=== PATIENT | female | born 1970 | race African-American/Black ===

== ENCOUNTER 2023-05-23 09:13 | Observation (INO) | payer OTHER, SELFPAY ==
--- OUTSIDE RECORDS SUMMARY | 2023-05-23 09:15 | XMS REPORT | Continuity of Care Document ---
:1970 Author Organization [facility] Address [address] [place] [address] Care Team Providers Name Role Phone Asked, No Pcp Primary Care Physician Unavailable KELSEY ARCE Attending Clinician Unavailable JESUS ESPINO Attending Clinician Unavailable NICKOLAS DE LA TORRE Attending Clinician Unavailable TOMMIE SAUCEDA Attending Clinician Unavailable DO GENARO QUEEN Attending Clinician Unavailable DEREK HIGH Admitting Clinician Unavailable GENARO QUEEN Admitting Clinician Unavailable DO GENARO QUEEN Admitting Clinician Unavailable Problems Condition Condition Condition Status Onset Resolution Last Treating Co mments Source Name Details Category Date Date Treatment Clinician Date Exacerbati Exacerbati Disease Active M ethodi on of on of 06-13 systemic systemic 00:00: Hospit a lupus lupus 00 l Allergies, Adverse Reactions, Alerts Allergy Allergy Status Severity Reaction(s) Onset Inactive Treating Comm ents Source Name Type Date Date Clinician Nikhil Warren Active Hives Method i ycin ty to 06-13 adverse 00:00: Hospita reaction 00 l s to drug Social History Social Habit Start Date Stop Date Quantity Comments Source [facility] History of Social 2020-06-15 2020-06-[address] function 00:00:00 00:00:00 Hospital Tobacco use and 2020-06-13 2020-06-13 Smokeless [facility] 00:00:00 00:00:00 tobacco non-user Hospital Alcohol intake 2020-06-13 2020-06-13 Ex-drinker [facility] 00:00:00 00:00:00 (finding) Hospital Sex Assigned At [birth year] [facility] Smoking Status Start Date Stop Date Source Never smoked tobacco [facility] Medications This patient has no known medications. Procedures This patient has no known procedures. Plan of Care Planned Activity Planned Date Details Comments Source Future Scheduled 2023-05-16 Screening for [facility] Test 11:12:14 malignant neoplasm of colon (procedure) [code = 315448440] Future Scheduled 2023-05-16 Screening for [facility] Test 11:12:14 malignant neoplasm of colon (procedure) [code = 081130665] Future Scheduled 2023-05-16 Screening for [facility] Test 11:12:14 malignant neoplasm of colon (procedure) [code = 108885897] Future Scheduled 2023-05-16 COVID-19 VACCINE [facility] Test 11:12:14 (#1) [code = COVID-19 VACCINE (#1)] Future Scheduled 2023-05-16 Hepatitis C [facility] Test 11:12:14 screening (procedure) [code = 913593993] Future Scheduled 2023-05-16 Screening for [facility] Test 11:12:14 malignant neoplasm of cervix (procedure) [code = 749172640] Future Scheduled 2023-05-16 BREAST CANCER [facility] Test 11:12:14 SCREENING [code = BREAST CANCER SCREENING] Future Scheduled 2023-05-16 Screening for [facility] Test 11:12:14 malignant neoplasm of colon (procedure) [code = 558078654] Future Scheduled 2023-05-16 Screening for [facility] Test 11:12:14 malignant neoplasm of colon (procedure) [code = 655662804] Future Scheduled 2023-05-16 SHINGLES VACCINES [facility] 11:12:14 (1 of 2) [code = SHINGLES VACCINES (1 of 2)] Future Scheduled 2023-05-16 INFLUENZA VACCINE [facility] Test 11:12:14 [code = INFLUENZA VACCINE] Encounters Start End Encounter Admission Attending Care Care Encounter Source Date/Time Date/Time Type Type Clinicians Facility Department ID 2023-02-26 Outpatient [facility] [id number] [place] 10:14:30 [id number] [facility] 2023-02-23 Outpatient [facility] [id number] [place] 11:35:09 [id number] [facility] 2023-05-20 2023-05-20 Outpatient CORRIE ARCE, [facility] [id number] [place] 12:49:00 12:49:00 KELSEY -[id number] [facility] 2023-03-23 2023-03-24 Outpatient Mikki ESPINO, [facility] [id number] 22:46:00 20:55:00 [facility] 2023-02-26 2023-02-26 Outpatient WIL, [facility] [id number] [place] 10:10:00 10:10:00 [facility] 2020-06-13 2020-06-16 Inpatient [facility] [id number] [place] 00:00:00 00:00:00 [facility]IT[facility] [address] Results Test Description Test Time Test Comments Results Result Comments Source SARS-CoV-2 (COVID-19) RNA [Presence] in Respiratory sp ecimen by 2020-06-13 20:41:51 JAY JAY with probe detection Test Item Value Reference Range Interpretation Comme nts SARS-CoV-2 (COVID-19) RNA [Presence] in Respiratory Not detected No t-Detected specimen by JAY JAY with probe detection (test code = 44521-2) [facility]
[2023-05-23 09:51] LABS: Specific Gravity 1.022 (1.005-1.030); Transitional Epithelial <5 /HPF (None Seen); Urine Bacteria <20 /HPF (<20); Urine Bilirubin NEGATIVE (Negative); Urine Blood 1+ (Negative); Urine Clarity Extremely Turbid (Clear); Urine Color Yellow (Yellow); Urine Glucose NEGATIVE (Negative); Urine Mucus 4+ /HPF (None Seen); Urine Protein 1+ (Negative); Urine RBC <5 /HPF (None Seen); Urine Urobilinogen Normal (Normal); Urine pH 5.5 (5.0-7.0)
[2023-05-23 10:31] LABS: Absolute Lymphocytes (CBC) 1.9 K/uL (0.7-4.9); Hematocrit 36.5 % (36.0-45.0); Lymphocytes % 23.1 % (15.3-44.8); MCV 90.2 fL (80-100); RBC Red Blood Cell Count 4.05 M/uL (3.86-4.86)
[2023-05-23 10:34] LABS: Protime INR 1.26
[2023-05-23] MEDS ORDERED: HYDROCORTISONE SUC 100 MG INJ ONE ×2 (10:39→19:31)
[2023-05-23] MEDS ORDERED: FENTANYL CITR 100 MCG/2 ML ONE (10:40)
[2023-05-23 10:57] LABS: Albumin 3.5 g/dL (3.4-5.0); Bilirubin Total 0.5 mg/dL (0.2-1.0); Phosphorus 2.3 mg/dL (2.5-4.9); Potassium 2.8 mEq/L (3.5-5.1); Protein, Total 7.6 g/dL (6.4-8.2); Thyroid Stimulating Hormone 0.823 uIU/mL (0.358-3.740)
--- NOTE | 2023-05-23 11:05 | RAD REPORT ---
EXAM DESCRIPTION: CT - Head C Spine Cap Wo Con - 05/23/2023 10:49 am CLINICAL HISTORY: Trauma, head and neck injury. Chest, abdomen and pelvis pain. flank pain;Declining state COMPARISON: <Comparisons> TECHNIQUE: CT head without contrast. CT cervical spine without contrast with coronal and sagittal reformatted images. CT chest, abdomen and pelvis without contrast with coronal and sagittal reformatted images of the spi ne. All CT scans are performed using dose optimization technique as appropriate and may include automated exposure control or mA/KV adjustment according to patient size. FINDINGS: CT HEAD WITHOUT CONTRAST: No intracranial hemorrhage, hydrocephalus or extra-axial fluid collection. No areas of brain edema o r midline shift. The paranasal sinuses and mastoids are clear. The calvarium is intact. CT CERVICAL SPINE WITHOUT CONTRAST: No fracture or subluxation. The prevertebral soft tissues are normal in thickness. CT CHEST, ABDOMEN, PELVIS WITHOUT CONTRAST: NOTE: Lack of contrast is a significant limitation in the assessment of trauma related findings. Spec ifically, solid organ, vascular and bowel evaluation is significantly limited. The lungs are clear.No pneumothorax or pericardial/pleural fluid. No evidence of intra-abdominal visceral injury, free fluid or free air is seen within the above detai led limitations. Cholecystectomy clips. No concerning pelvic findings. No fractures. IMPRESSION: No acute abnormality is detected.
--- NOTE | 2023-05-23 11:08 | RAD REPORT ---
EXAM DESCRIPTION: RAD - Chest Single View - 05/23/2023 10:35 am CLINICAL HISTORY: tachycardia Chest pain. COMPARISON: CHEST SINGLE VIEW dated 10/28/2013; CHEST PA AND LAT 2 VIEW dated 10/21/2013; CHEST SING LE VIEW dated 10/03/2013 FINDINGS: Portable technique limits examination quality. The lungs are grossly clear. The heart is normal in size. No displaced fractures. IMPRESSION: No acute intrathoracic process suspected.
[2023-05-23] MEDS ORDERED: HYDROMORPHONE HCL 1 MG/ML INJ ONE (11:44)
[2023-05-23] MEDS ORDERED: POTASSIUM PHOS IN 0.9 % NACL 15 MMOL/250 ML BAG IV ONE (12:15)
[2023-05-23] MEDS ORDERED: NA CHLORIDE 0.9% 2,000 ML ONE (12:25)
[2023-05-23] MEDS ORDERED: KCL 20 MEQ/100 mL IVPB 200 ML IV ONE (12:25)
--- NOTE | 2023-05-23 12:50 | P.HP ---
Certification for Inpatient Patient admitted to: Observation With expected LOS: <2 Midnights Practitioner: I am a practitioner with admitting privileges, knowledge of patient current condition, hospital course, and medical plan of care. Services: Services provided to patient in accordance with Admission requirements found in Title 42 Section 412.3 of the Code of Federal Regulations Patient History Date of Service: 05/23/23 Reason for admission: Hypokalemia, proteinuria History of Present Illness: 53, yo F, PMH: Lupus (on q48hr prednisone), HTN, Gastroparesis, recurrent UTIs, ~1 a month (since ~january 2022), depression Presents to ED today after leaving AMA from nearby hospital due to not feeling better. She was hospitalized for ~5-6 days and receiving treatment for pneum onia, UTI, and APRIL. Initially presented to hospital due to chest pain, nausea, and not feeling well. On further discussion, patient states 2 weeks ago, she felt like she developed a UTI, presented to UC/ED in [place], and prescribed antibiotic and iburpofen for UTI / pain. A few days later she didn't feel better so presented to [facility] (05/16) and found to have APRIL (Cr: ~2.7) and UTI. She was given IVF, antibiotics and discharged home. She didn't feel any better so returned on 05/18 (cr: 1.24) and admitted for further treatment/evaluation. Urine culture grew staph haemolyticus that was reportedly iglesias-sensitive - and patient received rocephin and nitrofurantoin. She was reportedly improving, however patient states she was continuing with nausea and vomiting, with a dark tarry black stool daily and having pain across lower back "at waistline" in addition to other scattered/nonspecific areas of her body. In the ED here, she was noted to be nauseous, with lower back pain, rust-colored urine, and hypokalemia of 2.8. She reportedly had a potassium level of 2.8 yesterday, replaced with 80meq KCL, and was "normal" this morning, per [facility] staff. Clean catch UA done in the ED reports +mild proteinuria, 25 leuk est., no bacteria, 1+blood, <5 rbcs, 5-10 hyaline casts, +mucus. She states she has been on prednisone 10mg every other day for years. Did not tolerate methotrexate or plaquenil. 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 Has been off steroids for 1 week. Allergies azithromycin Adverse Reaction (Mild, Verified 10/03/13 12:01) Hives Home medications list reviewed: No (below is old / inaccurate) Home Medications: Escitalopram [Lexapro] 10 mg PO DAILY 10/03/13 Metoclopramide [Reglan*] 10 mg PO QID 10/03/13 Rivaroxaban [Xarelto*] 20 mg PO DAILY 10/03/13 Sucralfate [Carafate*] 1 gm PO QID 10/03/13 Potassium Chloride [K-Dur] 10 meq PO DAILY 10/22/13 Sotalol HCl [Sorine] 80 mg PO BID #0 tablet 10/24/13 Hydrocodone 10/APAP 325 [[place] 10/325*] 1 tab PO Q6H PRN #30 tab 10/30/13 predniSONE [Prednisone*] 10 mg PO BID #40 tab 10/30/13 - Past Medical/Surgical History Diabetic: No -: Lupus -: recurrent UTIs, ~1 a month (since ~january 2022) -: Hypertension -: Depression -: Gastroparesis -: sciatica -: Cholecystectomy -: uterine ablation 2009 -: tubal ligation -: cardiac catheterization (from EMR) -: r shoulder sx -: 3 vaginal deliveries -: appendectomy - Family History Father -: Cancer (colon) Mother -: Cancer (lung) - Social History Smoking Status: Never smoker Alcohol use: No CD- Drugs: Yes Caffeine use: No Place of Residence: Home Review of Systems 10-point ROS is otherwise unremarkable Physical Examination - Studies Laboratory Data (last 24 hrs) 05/23/23 10:15: PT 13.9 H, INR 1.26, APTT 31.4 05/23/23 10:15: Sodium 135 L, Potassium 2.8 L, BUN 5 L, Creatinine 0.63, Glucose 99, Phosphorus 2.3 L, Total Bilirubin 0.5, AST 13 L, ALT 22, Alkaline Phosphatase 90 05/23/23 10:15: WBC 8.20, Hgb 12.2, Hct 36.5, Plt Count 300 Assessment and Plan - Advance Directives Does patient have a Living Will: No Does patient have a Durable POA for Healthcare: No - Code Status/Comfort Care Code Status Assessed: Yes Code Status: Full Code Physician Review: Patient Assessed, Agree with Above Assessment and Plan Physician Review Additional Text: Physical Exam: GEN: Alert, oriented, appears fatigued HEENT: Normal conjunctiva, sclera anicteric CV: Regular rate and rhythm, no peripheral edema Pulm: Nonlabored respirations on room air, clear bilaterally ABD: Soft, mild tenderness suprapubic to deep palpation, non-distended MSK: mild tenderness to palpation in lower lumbar paraspinal muscles Integumentary: no rashes, no lesions, +scattered areas of hypopigmentation of face Neuro: Normal speech, normal affect Problem List: Hypokalemia, Proteinuria recent UTI in last week (staph hemolyticus) nausea/vomiting, lower back pain Hyponatremia, mild Lupus Gastroparesis Hypertension sciatica Hypokalemia, Proteinuria recent UTI in last week (staph hemolyticus) nausea/vomiting, lower back pain Hyponatremia, mild Lupus lower back pain Recently admitted to [facility] on Friday 05/18, urine culture grew staph hemolyticus, received Rocephin and Macrobid to cover for pneumonia and UTI No bacteria noted on UA in the ED now, received 5 days of antibiotics, afebrile, no leukocytosis, will hold off on further antibiotics at this point CT chest/abdomen/pelvis in the ED without acute findings, limited due to noncontrast 1+ blood on UA, no RBCs Check CPK level, all possible mild globin, concerning for ATN Mild proteinuria possibly secular of UTI, possible component lupus nephritis We will give gentle IV fluids Nephrology consulted history of chronic 10 mg prednisone every other day for over a year patient's symptoms may be secondary to adrenal insufficiency, however electrolytes not exact hydrocortisone given in ED (100mg), will continue with 25mg q8hr for now labs ordered at this time: Urine electrolytes, CRP, CPK blood cultures ordered urine cultures ordered afebrile, no leukocytosis Gastroparesis Hypertension sciatica confirm home meds, restart as appropriate EKG ordered, monitor on telemetry EMR notes ?history of afib, patient did not report any history when reviewing cardiac system, will confirm VTE: ambulatory Code: Full Dispo: Home ~1-2 days pending further workup / improvement Time Spent Managing Pts Care (In Minutes): 70
--- NOTE | 2023-05-23 14:05 | EDPHYS ---
Physician Documentation [facility] Name: Garrick Flores Age: 53 yrs Sex: Female : 1970 Arrival Date: 05/23/2023 Time: 09:13 Bed 13 Private MD: ED Physician Dayton Lee HPI: 05/23 10:19 This 53 yrs old Black Female presents to ER via Wheelchair with complaints of Back Pain snw - Kidney infection. 10:19 The patient presents with pt states she was admitted to [place] for 5 days and left AMA snw as she feels worse.. Severity of symptoms: At their worst the symptoms were severe. as noted. 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 - Social history:: Smoking status: Patient denies any tobacco usage or history of. ROS: 10:18 Eyes: Negative for injury, pain, redness, and discharge, ENT: Negative for injury, snw pain, and discharge, Neck: Negative for injury, pain, and swelling, Cardiovascular: Negative for chest pain, palpitations, and edema. 10:18 MS/Extremity: Negative for injury and deformity, Skin: Negative for injury, rash, and discoloration, Neuro: Negative for headache, weakness, numbness, tingling, and seizure, Psych: Negative for depression, anxiety, suicide ideation, homicidal ideation, and hallucinations. 10:18 Constitutional: Positive for body aches, fatigue, malaise, poor PO intake. 10:18 Respiratory: Positive for shortness of breath. 10:18 Abdomen/GI: Positive for abdominal pain, vomiting. 10:18 Back: Positive for flank pain, bilaterally. 10:18 : Positive for urinary symptoms. Exam: 10:15 Head/Face: Normocephalic, atraumatic. snw 10:15 Neck: Trachea midline, no thyromegaly or masses palpated, and no cervical lymphadenopathy. Supple, full range of motion without nuchal rigidity, or vertebral point tenderness. No Meningismus. Chest/axilla: Normal chest wall appearance and motion. Nontender with no deformity. No lesions are appreciated. 10:15 MS/ Extremity: Pulses equal, no cyanosis. Neurovascular intact. Full, normal range of motion. Neuro: Awake and alert, GCS 15, oriented to person, place, time, and situation. Cranial nerves II-XII grossly intact. Motor strength 5/5 in all extremities. Sensory grossly intact. Cerebellar exam normal. Normal gait. 10:15 Constitutional: The patient appears alert, awake, frail, pale, restless, uncomfortable. 10:15 Eyes: Conjunctiva: pale, bilaterally. 10:15 ENT: Mouth: Oral mucosa: dry. 10:15 Cardiovascular: Rate: normal, actual rate is 89 bpm, Edema: pedal edema, that is mild. 10:15 Respiratory: the patient does not display signs of respiratory distress, Respirations: shallow respirations, tachypnea, Breath sounds: are clear throughout. 10:15 Abdomen/GI: Bowel sounds: diminished, Palpation: mild abdominal tenderness, in the left upper quadrant and left lower quadrant. 10:15 Back: CVA tenderness, that is moderate, is noted bilaterally. 10:15 Neuro: Orientation: appropriate for stated age, Mentation: is normal, Memory: is normal. 10:15 Psych: Behavior/mood is anxious, Affect is calm, Oriented to person, place, time. Vital Signs: 09:27 BP 120 / 91; Pulse 105; Resp 18; Temp 98.2(O); Pulse Ox 100% on R/A; Weight 71.5 kg db (M); Height 5 ft. 9 in. ; Pain 10/10; 10:19 BP 141 / 102; Pulse 98; Resp 16; Pulse Ox 100% on R/A; db 11:36 BP 158 / 92; Pulse 75; Resp 16; Pulse Ox 100% on R/A; db 12:00 BP 138 / 90; Pulse 81; Resp 18; Pulse Ox 98% on R/A; db 13:00 BP 145 / 93; Pulse 88; Resp 16; Pulse Ox 100% on R/A; db 09:27 Body Mass Index 23.28 (71.50 kg, 175.26 cm) db 09:27 Pain Scale: Adult db Procedures: 10:22 Peripheral line: by aseptic technique a peripheral line was placed in the right snw external jugular vein. MDM: 09:22 Patient medically screened. snw 09:30 Differential diagnosis: Fatigue Pyelonephritis UTI. Data reviewed: vital signs, nurses snw notes. Awaiting: pt in bathroom to provide sample. 10:22 Differential diagnosis: kidney stone, nonspecific abdominal pain, urinary tract snw infection, pyelonephritis, renal failure. 10:43 ED course: Pt in CT. snw 11:41 Management of patient was discussed with the following: Hospitalist: Dr. Sheppard. snw 13:25 Counseling: I had a detailed discussion with the patient and/or guardian regarding: the snw historical points, exam findings, and any diagnostic results supporting the discharge/admit diagnosis. ED course: Dr. Antolin Sheppard is in room evaluating pt . 05/23 09:21 Order name: Urine W/Microscopic (UAM); Complete Time: 10:14 snw 05/23 09:48 Order name: Blood Culture Adult (2) snw 05/23 09:48 Order name: CBC with Diff; Complete Time: 10:35 snw 05/23 09:48 Order name: CMP; Complete Time: 10:58 snw 05/23 09:48 Order name: Lactate w/ 2H reflex if indic.; Complete Time: 10:57 snw 05/23 09:48 Order name: Protime (+inr); Complete Time: 10:35 snw 05/23 09:48 Order name: Ptt, Activated; Complete Time: 10:35 snw 05/23 09:48 Order name: TSH; Complete Time: 10:58 snw 05/23 09:48 Order name: Phosphorus; Complete Time: 10:58 snw 05/23 09:48 Order name: LDH; Complete Time: 10:58 snw 05/23 10:24 Order name: Urine Culture 05/23 10:24 Order name: Urine Creatinine; Complete Time: 11:30 snw 05/23 10:24 Order name: Urine For Protein, Random; Complete Time: 10:58 snw 05/23 10:24 Order name: Urine Osmolality; Complete Time: 10:57 snw 05/23 12:54 Order name: Add On-Lab 05/23 13:00 Order name: C-Reactive Protein; Complete Time: 13:36 EDMS 05/23 13:57 Order name: Urine Potassium Random; Complete Time: 15:24 snw 05/23 13:57 Order name: Urine Sodium Random; Complete Time: 15:24 snw 05/23 14:16 Order name: CBC with Automated Diff EDMS 05/23 14:16 Order name: CBC with Automated Diff EDMS 05/23 14:16 Order name: CBC with Automated Diff EDMS 05/23 14:16 Order name: CBC with Automated Diff EDMS 05/23 14:16 Order name: Comprehensive Metabolic Panel EDMS 05/23 14:16 Order name: Comprehensive Metabolic Panel EDMS 05/23 14:16 Order name: Comprehensive Metabolic Panel EDMS 05/23 14:16 Order name: Comprehensive Metabolic Panel EDMS 05/23 14:16 Order name: Magnesium EDMS 05/23 14:16 Order name: Magnesium EDMS 05/23 14:16 Order name: Magnesium EDMS 05/23 14:16 Order name: Magnesium EDMS 05/23 14:16 Order name: Phosphorus EDMS 05/23 14:16 Order name: Phosphorus EDMS 05/23 09:48 Order name: Chest Single View XRAY; Complete Time: 11:30 w 05/23 10:21 Order name: CT Traumagram (Head C Spine CAP wo con); Complete Time: 11:06 05/23 09:48 Order name: EKG; Complete Time: 09:49 05/23 14:16 Order name: CONS Physician Consult CO 05/23 14:16 Order name: Full Liquid EDMS 05/23 09:48 Order name: Accucheck; Complete Time: 10:22 05/23 09:48 Order name: Cardiac monitoring; Complete Time: 10:22 w 05/23 09:48 Order name: EKG - Nurse/Tech; Complete Time: 10:27 05/23 09:48 Order name: IV Saline Lock - Large Bore; Complete Time: 10:13 05/23 09:48 Order name: Labs collected and sent; Complete Time: 10:14 05/23 09:48 Order name: O2 Per Protocol; Complete Time: 10:22 05/23 09:48 Order name: O2 Sat Monitoring; Complete Time: 10:22 05/23 09:48 Order name: Vital Signs; Complete Time: 10:22 snw EC:25 Rate is 94 beats/min. Rhythm is regular. QRS [place] is Normal. IN interval is normal. QRS snw interval is normal. QT interval is normal. Clinical impression: NSR w/ Non-specific ST/T Changes. Administered Medications: 10:32 Drug: fentaNYL (PF) IVP 25 mcg Route: IVP; Site: right jugular; db 13:13 Follow up: Response: No adverse reaction db 10:35 Drug: Solu-CORTEF IVP 100 mg Route: IVP; Site: right jugular; db 13:13 Follow up: Response: No adverse reaction db 11:40 Drug: HYDROmorphone IM 1 mg Route: IM; Site: right vastus lateralis; db 19:06 Follow up: Response: No adverse reaction db 12:05 Drug: NS 0.9% IV 2000 ml Route: IV; Rate: 1 bolus; Site: right jugular; db 15:00 Follow up: Response: No adverse reaction; IV Status: Completed infusion; IV Intake: db 2000ml 12:10 Drug: Potassium Chloride IV 20 mEq Route: IV; Rate: calculated rate; Site: right db jugular; 14:00 Follow up: Response: No adverse reaction; IV Status: Completed infusion; IV Intake: db 200ml 13:00 Drug: Potassium Phosphate IV 15 mmol Route: IV; Rate: calculated rate; Site: right db antecubital; 17:00 Follow up: Response: No adverse reaction; IV Status: Completed infusion; IV Intake: db 250ml 14:01 Drug: Potassium Chloride IV 20 mEq Route: IV; Rate: calculated rate; Site: right db jugular; 16:00 Follow up: Response: No adverse reaction; IV Status: Completed infusion; IV Intake: db 100ml Disposition Summary: 05/23/23 14:04 Hospitalization Ordered Hospitalization Status: Inpatient Admission snw Provider: Antolin Sheppard Location: Telemetry/[facility] (Inpatient) snw Condition: Stable snw Problem: an acute exacerbation snw Symptoms: are unchanged snw Bed/Room Type: Standard snw Room Assignment: 224(05/23/23 19:38) cg Diagnosis - Dehydration snw - Hypokalemia snw - Hypophosphatemia snw - Systemic lupus erythematosus, unspecified snw - Unspecified renal colic snw Forms: - Medication Reconciliation Form snw - SBAR form snw Signatures: Dispatcher [employer] Inna Sharma FNP-C DRAFTING TEACHER-Macarena Umanzor, RN RN cg Sharifa Jhaveri RN RN db Corrections: (The following items were deleted from the chart) 09:32 09:30 Allergies: No Known Allergies; db db 19:38 14:04 ab walsh
--- NOTE | 2023-05-23 14:05 | ER ---
Nurse's Notes [facility] Name: Garrick Flores Age: 53 yrs Sex: Female : 1970 Arrival Date: 05/23/2023 Time: 09:13 Bed 13 Private MD: Diagnosis: Dehydration;Hypokalemia;Hypophosphatemia;Systemic lupus erythematosus, unspecified;Unspecified renal colic Presentation: 05/23 09:26 Chief complaint: Chief complaint: Patient states: patient complaining of mid back pain. db Left AMA this morning from [facility] was diagnosed with a kidney infection and Pneumonia there since Wednesday. : Coronavirus screen: Vaccine status: Patient reports being unvaccinated. Client denies db travel out of the [place] in the last 14 days. At this time, the client does not indicate any symptoms associated with coronavirus-19. Ebola Screen: Patient negative for fever greater than or equal to 101.5 degrees Fahrenheit, and additional compatible Ebola Virus Disease symptoms Patient denies exposure to infectious person. Patient denies travel to an Ebola-affected area in the 21 days before illness onset. No symptoms or risks identified at this time. Initial Sepsis Screen: Does the patient meet any 2 criteria? HR > 90 bpm. No. Patient's initial sepsis screen is negative. Does the patient have a suspected source of infection? Yes: Other: kidney infection No. Patient's initial sepsis screen is negative. Risk Assessment: Do you want to hurt yourself or someone else? Patient reports no desire to harm self or others. Onset of symptoms was May 17, 2023. : Method Of Arrival: Wheelchair db 09:27 Acuity: JAN 3 db Triage Assessment: :30 General: Appears in no apparent distress. uncomfortable, Behavior is cooperative, db crying. Pain: Complains of pain in back. Neuro: Level of Consciousness is awake, alert, obeys commands, Oriented to person, place, time, situation, Speech is normal. Respiratory: Airway is patent Respiratory effort is even, unlabored, Respiratory pattern is regular, symmetrical. GI: Abdomen is flat, non-distended. 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 - Social history:: Smoking status: Patient denies any tobacco usage or history of. Screenin:[facility] ED Fall Risk Assessment (Adult) History of falling in the last 3 months, db including since admission No falls in past 3 months (0 pts) Confusion or Disorientation No (0 pts) Intoxicated or Sedated No (0 pts) Impaired Gait No (0 pts) Mobility Assist Device Used No (0 pt) Altered Elimination No (0 pt) Score/Fall Risk Level 0 - 2 = Low Risk Oriented to surroundings, Maintained a safe environment, Educated pt \T\ family on fall prevention, incl call for assistance when getting out of bed. Abuse screen: Denies threats or abuse. Denies injuries from another. Abuse screen: Denies threats or abuse. Nutritional screening: No deficits noted. Tuberculosis screening: No symptoms or risk factors identified. Assessment: 09:33 Reassessment: Patient appears in no apparent distress at this time. Patient and/or db family updated on plan of care and expected duration. Pain level reassessed. Patient is alert, oriented x 3, equal unlabored respirations, skin warm/dry/pink. General: Appears in no apparent distress. comfortable, Behavior is calm, cooperative. Neuro: Level of Consciousness is awake, alert, obeys commands, Oriented to person, place, time, situation. 10:36 Reassessment: Patient appears in no apparent distress at this time. PT TO CT. db 11:50 Reassessment: POTASSIUM 15 MMOL FAXED TO PHARMACY. db 13:14 Reassessment: Patient appears in no apparent distress at this time. Patient and/or db family updated on plan of care and expected duration. Pain level reassessed. Patient is alert, oriented x 3, equal unlabored respirations, skin warm/dry/pink. General: Appears in no apparent distress. comfortable, Behavior is calm, cooperative. 14:00 Reassessment: See goAct for continued charting. General: Appears in no apparent db distress. comfortable, Behavior is calm, cooperative. Vital Signs: 09:27 BP 120 / 91; Pulse 105; Resp 18; Temp 98.2(O); Pulse Ox 100% on R/A; Weight 71.5 kg db (M); Height 5 ft. 9 in. ; Pain 10/10; 10:19 BP 141 / 102; Pulse 98; Resp 16; Pulse Ox 100% on R/A; db 11:36 BP 158 / 92; Pulse 75; Resp 16; Pulse Ox 100% on R/A; db 12:00 BP 138 / 90; Pulse 81; Resp 18; Pulse Ox 98% on R/A; db 13:00 BP 145 / 93; Pulse 88; Resp 16; Pulse Ox 100% on R/A; db 09:27 Body Mass Index 23.28 (71.50 kg, 175.26 cm) db 09:27 Pain Scale: Adult db ED Course: 09:15 Patient arrived in ED. im 09:21 Inna Benavides F[facility]-C [facility]. snw 09:21 Dayton Lee MD is Attending Physician. snw 09:26 Sharifa Jhaveri, RN is Primary Nurse. db 09:30 Triage completed. db 09:33 Arm band placed on Patient placed in an exam room. db 10:15 Inserted saline lock: 20 gauge in right EJ, using aseptic technique. Blood collected. bp 10:37 Chest Single View XRAY In Process Unspecified. EDMS 10:50 CT Traumagram (Head C Spine CAP wo con) In Process Unspecified. EDMS 12:30 Patient has correct armband on for positive identification. Bed in low position. Call db light in reach. Side rails up X2. Client placed on continuous cardiac and pulse oximetry monitoring. NIBP monitoring applied. Warm blanket given. 14:02 Antolin Sheppard MD is Hospitalizing Provider. snw 15:00 Patient admitted, IV remains in place. db 19:13 Primary Nurse role handed off by Sharifa Jhaveri, RN cm10 19:13 Korin Zapien, LISA is Primary Nurse. cm10 19:15 No provider procedures requiring assistance completed. db Administered Medications: 10:32 Drug: fentaNYL (PF) IVP 25 mcg Route: IVP; Site: right jugular; db 13:13 Follow up: Response: No adverse reaction db 10:35 Drug: Solu-CORTEF IVP 100 mg Route: IVP; Site: right jugular; db 13:13 Follow up: Response: No adverse reaction db 11:40 Drug: HYDROmorphone IM 1 mg Route: IM; Site: right vastus lateralis; db 19:06 Follow up: Response: No adverse reaction db 12:05 Drug: NS 0.9% IV 2000 ml Route: IV; Rate: 1 bolus; Site: right jugular; db 15:00 Follow up: Response: No adverse reaction; IV Status: Completed infusion; IV Intake: db 2000ml 12:10 Drug: Potassium Chloride IV 20 mEq Route: IV; Rate: calculated rate; Site: right db jugular; 14:00 Follow up: Response: No adverse reaction; IV Status: Completed infusion; IV Intake: db 200ml 13:00 Drug: Potassium Phosphate IV 15 mmol Route: IV; Rate: calculated rate; Site: right db antecubital; 17:00 Follow up: Response: No adverse reaction; IV Status: Completed infusion; IV Intake: db 250ml 14:01 Drug: Potassium Chloride IV 20 mEq Route: IV; Rate: calculated rate; Site: right db jugular; 16:00 Follow up: Response: No adverse reaction; IV Status: Completed infusion; IV Intake: db 100ml Medication: 15:00 VIS not applicable for this client. db Intake: 14:00 IV: 200ml; Total: 200ml. db 15:00 IV: 2000ml; Total: 2200ml. db 16:00 IV: 100ml; Total: 2300ml. db 17:00 IV: 250ml; Total: 2550ml. db Outcome: 14:04 Decision to Hospitalize by Provider. snw 19:08 Admitted to ER Hold. Please see [facility] for further documentation. db 19:08 Condition: stable 19:08 Instructed on the need for admit. 20:39 Patient left the ED. cm10 Signatures: Dispatcher [employer] Inna Sharma FNP-C FNP-Farhad Nava RN RN Sharifa Ramirez RN RN Margarita Winn Clarissa RN RN cm10 Corrections: (The following items were deleted from the chart) 09:30 09:26 Chief complaint: db db 09:32 09:30 Allergies: No Known Allergies; db db
[2023-05-23] MEDS ORDERED: ACETAMINOPHEN 500 MG TAB PO PRN (14:11)
[2023-05-23] MEDS: NA CHLORIDE 0.9% 1,000 ML IV SCH (15:00)
[2023-05-23] MEDS: MORPHINE 4 MG/ML SYR IV PRN ×2 (16:34→22:03)
[2023-05-23] MEDS: ONDANSETRON 4 MG/2 ML VIAL IV PRN ×2 (16:35→23:29)
[2023-05-23] MEDS ORDERED: NA CHLORIDE 0.9% 1,000 ML ONE (17:23)
[2023-05-23 19:18] VITALS: BMI 23.3
[2023-05-23] MEDS: HYDROCORTISONE SUC 100 MG INJ IV SCH (19:29)
[2023-05-23] MEDS: HYDROCODONE/APAP 5/325 MG TAB PO PRN (23:29)
[2023-05-24] MEDS: NA CHLORIDE 0.9% 1,000 ML IV SCH ×3 (01:00→21:00)
[2023-05-24 03:56] LABS: Absolute Lymphocytes (CBC) 2.2 K/uL (0.7-4.9); Hematocrit 28.9 % (36.0-45.0); Lymphocytes % 25.9 % (15.3-44.8); MCV 90.2 fL (80-100); MPV 7.1 fL (7.6-11.3); RBC Red Blood Cell Count 3.21 M/uL (3.86-4.86)
[2023-05-24] MEDS: MORPHINE 4 MG/ML SYR IV PRN ×2 (04:07→21:22)
[2023-05-24] MEDS: HYDROCORTISONE SUC 100 MG INJ IV SCH ×3 (04:09→16:23)
[2023-05-24 04:30] LABS: Albumin 2.7 g/dL (3.4-5.0); Bilirubin Total 0.4 mg/dL (0.2-1.0); Magnesium 1.1 mg/dL (1.6-2.4); Phosphorus 2.7 mg/dL (2.5-4.9); Potassium 3.2 mEq/L (3.5-5.1); Protein, Total 5.9 g/dL (6.4-8.2)
--- NOTE | 2023-05-24 06:52 | P.PN ---
Date of Service: 05/24/23 Subjective: feeling a little better today, still very weak / no energy today continues with lower back pain tolerating diet today (liquids) no nausea / no vomiting / no diarrhea no acute events overnight ROS: 10 point ROS as noted above, otherwise negative Physical Exam: GEN: Alert, oriented, appears fatigued HEENT: Normal conjunctiva, sclera anicteric CV: Regular rate and rhythm, no peripheral edema Pulm: Nonlabored respirations on room air, clear bilaterally ABD: Soft, mild tenderness suprapubic to deep palpation, non-distended MSK: mild tenderness to palpation in lower lumbar paraspinal muscles Integumentary: no rashes, no lesions, +scattered areas of hypopigmentation of face Neuro: Normal speech, normal affect vitals reviewed Problem List: Hypokalemia, Proteinuria recent UTI in last week (staph hemolyticus) nausea/vomiting, lower back pain Hyponatremia, mild Lupus Anemia Gastroparesis Hypertension sciatica hx of afib Hypokalemia, Proteinuria recent UTI in last week (staph hemolyticus) nausea/vomiting, lower back pain Hyponatremia, mild Lupus lower back pain Recently admitted to [facility] on Friday 05/18, urine culture grew staph hemolyticus, received Rocephin and Macrobid to cover for pneumonia and UTI No bacteria noted on UA in the ED now, received 5 days of antibiotics, afebrile, no leukocytosis, will hold off on further antibiotics at this point CT chest/abdomen/pelvis in the ED without acute findings, limited due to noncontrast 1+ blood on UA, no RBCs CPK ok Mild proteinuria possibly sequlae of UTI, possible component lupus nephritis gentle IVF Nephrology consulted history of chronic 10 mg prednisone every other day for over a year patient's symptoms may be secondary to adrenal insufficiency, however electrolytes not exact hydrocortisone given in ED (100mg), will continue with 25mg q8hr for now feeling better labs ordered at this time: Urine electrolytes, CRP, CPK blood cultures: NTGD urine culture: pending afebrile, no leukocytosis Anemia hgb dropped from 12.2 -> 9.9 overnight repeat H&H ordered; monitor no bleed, but states 1 week of steady, once/daily dark tarry stool start ppi for prophylaxis, given steroid use and possible UGI bleed, no epigastric tenderness Gastroparesis Hypertension sciatica hx of afib confirm home meds, restart as appropriate EKG ordered, monitor on telemetry reports she had afib ~10+ years ago and hasn't had any issues since then was previously taking metoprolol and had a stress test done at the time states vamper took her off medication / didn't need any more VTE: ambulatory Code: Full Dispo: Home ~1-2 days pending further workup / improvement
[2023-05-24] MEDS: PANTOPRAZOLE 40MG TABLET PO SCH (07:54)
[2023-05-24] MEDS ORDERED: POTASSIUM 25 MEQ EFFERV TAB PO ONE (08:00)
[2023-05-24] MEDS ORDERED: Magnesium Sulfate 2gm IVPB 2 G/50 ML BAG IV ONE (08:00)
[2023-05-24] MEDS: HYDROCODONE/APAP 5/325 MG TAB PO PRN ×2 (10:14→18:18)
[2023-05-24 11:23] LABS: Hematocrit 30.6 % (36.0-45.0); MCV 89.9 fL (80-100); MPV 6.9 fL (7.6-11.3); RBC Red Blood Cell Count 3.41 M/uL (3.86-4.86)
--- NOTE | 2023-05-24 17:13 | EKG ---
Test Date: 2023-05-23 Test Time: 10:24:16 Instrument Lens Grinder: APPLE MEASUREMENT RESULTS: Intervals: Rate: 94 TX: 114 QRSD: 78 QT: 310 QTc: 387 [place]: P: 57 TX: 114 QRS: 69 T: 59 INTERPRETIVE STATEMENTS: Normal sinus rhythm Early repolarization Normal ECG Compared to ECG 10/29/2013 05:06:30 Early repolarization now present Electronically Signed On 05-24-23 17:10:43 CDT by David Hendricks
[2023-05-24] MEDS: ENSURE ENLIVE 237 ML CAN PO SCH (21:23)
--- NOTE | 2023-05-24 21:50 | P.CNS ---
Date of Consult: 05/24/23 Reason for Consult: Proteinuria/ Hypokalemia Requesting Physician: Antolin Sheppard Chief Complaint: Hypokalemia, proteinuria History of Present Illness: 53, yo F, PMH: Lupus (on q48hr prednisone), HTN, Gastroparesis, recurrent UTIs, ~1 a month (since ~january 2022), depression Presents to ED today after leaving AMA from nearby hospital due to not feeling better. She was hospitalized for ~5-6 days and receiving treatment for pneumonia, UTI, and APRIL. Initially presented to hospital due to chest pain, nausea, and not feeling well. On further discussion, patient states 2 weeks ago, she felt like she developed a UTI, presented to UC/ED in [place], and prescribed antibiotic and iburpofen for UTI / pain. A few days later she didn't feel better so presented to [facility] (05/16) and found to have APRIL (Cr: ~2.7) and UTI. She was given IVF, antibiotics and discharged home. She didn't feel any better so returned on 05/18 (cr: 1.24) and admitted for further treatment/evaluation. Urine culture grew staph haemolyticus that was reportedly iglesias-sensitive - and patient received rocephin and nitrofurantoin. She was reportedly improving, however patient states she was continuing with nausea and vomiting, with a dark tarry black st ool daily and having pain across lower back "at waistline" in addition to other scattered/nonspecific areas of her body. In the ED here, she was noted to be nauseous, with lower back pain, rust-colored urine, and hypokalemia of 2.8. She reportedly had a potassium level of 2.8 yesterday, replaced with 80meq KCL, and was "normal" this morning, per [facility] staff. Clean catch UA done in the ED reports +mild proteinuria, 25 leuk est., no bacteria, 1+blood, <5 rbcs, 5-10 hyaline casts, +mucus. She states she has been on prednisone 10mg every other day for years. Did not tolerate methotrexate or plaquenil. 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 Has been off steroids for 1 week. 10:19 This 53 yrs old Black Female presents to ER via Wheelchair with complaints of Back Pain snw - Kidney infection. 10:19 The patient presents with pt states she was admitted to [facility] for 5 days and left AMA snw as she feels worse.. Severity of symptoms: At their worst the symptoms were severe. as noted. Allergies azithromycin Adverse Reaction (Mild, Verified 10/03/13 12:01) Hives Home medications list reviewed: Yes Home Medications: Escitalopram [Lexapro] 10 mg PO DAILY 10/03/13 Metoclopramide [Reglan*] 10 mg PO QID 10/03/13 Rivaroxaban [Xarelto*] 20 mg PO DAILY 10/03/13 Sucralfate [Carafate*] 1 gm PO QID 10/03/13 Potassium Chloride [K-Dur] 10 meq PO DAILY 10/22/13 Sotalol HCl [Sorine] 80 mg PO BID #0 tablet 10/24/13 Hydrocodone 10/APAP 325 [[place] 10/325*] 1 tab PO Q6H PRN #30 tab 10/30/13 predniSONE [Prednisone*] 10 mg PO BID #40 tab 10/30/13 - Past Medical/Surgical History Diabetic: No -: SLE -: recurrent UTIs, ~1 a month (since ~january 2022) -: HTN -: Depression -: Gastroparesis -: sciatica -: Cholecystectomy -: uterine ablation 2009 -: tubal ligation -: cardiac catheterization (from EMR) -: r shoulder sx -: 3 vaginal deliveries -: appendectomy - Family History Father Medical History: Cancer (colon) Mother Medical History: Cancer (lung) - Social History Smoking Status: Never smoker Alcohol use: No CD- Drugs: Yes Caffeine use: No Place of Residence: Home Review of Systems 10-point ROS is otherwise unremarkable General: Weakness, Malaise Physical Examination Temp Pulse Resp BP Pulse Ox 98.6 F 92 H 16 136/71 96 05/24/23 20:00 05/24/23 20:00 05/24/23 21:22 05/24/23 20:00 05/24/23 21:22 General: In no apparent distress, Oriented x3, Cooperative HEENT: Atraumatic Neck: Supple Respiratory: Clear to auscultation bilaterally Cardiovascular: No edema, Regular rate/rhythm Gastrointestinal: Non-distended Musculoskeletal: No clubbing, No contractures Integumentary: No rashes, No cyanosis Neurological: Normal speech Blood work reviewed in the chart. Imagings Data: [id number] EXAM DESCRIPTION: RAD - Chest Single View - 05/23/2023 10:35 am CLINICAL HISTORY: tachycardia Chest pain. COMPARISON: CHEST SINGLE VIEW dated 10/28/2013; CHEST PA AND LAT 2 VIEW dated 10/21/2013; CHEST SINGLE VIEW dated 10/03/2013 FINDINGS: Portable technique limits examination quality. The lungs are grossly clear. The heart is normal in size. No displaced fra ctures. IMPRESSION: No acute intrathoracic process suspected. EXAM DESCRIPTION: CT - Head C Spine Cap Wo Con - 05/23/2023 10:49 am CLINICAL HISTORY: Trauma, head and neck injury. Chest, abdomen and pelvis pain. flank pain;Declining state COMPARISON: <Comparisons> TECHNIQUE: CT head without contrast. CT cervical spine without contrast with coronal and sagittal reformatted images. CT chest, abdomen and pelvis without contrast with coronal and sagittal reformatted images of the spine. All CT scans are performed using dose optimization technique as appropriate and may include automated exposure control or mA/KV adjustment according to patient size. FINDINGS: CT HEAD WITHOUT CONTRAST: No intracranial hemorrhage, hydrocephalus or extra-axial fluid collection. No areas of brain edema or midline shift. The paranasal sinuses and mastoids are clear. The calvarium is intact. CT CERVICAL SPINE WITHOUT CONTRAST: No fracture or subluxation. The prevertebral soft tissues are normal in thickness. CT CHEST, ABDOMEN, PELVIS WITHOUT CONTRAST: NOTE: Lack of contrast is a significant limitation in the assessment of trauma related findings. Specifically, solid organ, vascular and bowel evaluation is significantly limited. The lungs are clear.No pneumothorax or pericardial/pleural fluid. No evidence of intra-abdominal visceral injury, free fluid or free air is seen within the above detailed limitations. Cholecystectomy clips. No concerning pelvic findings. No fractures. IMPRESSION: No acute abnormality is detected. Conclusions/Impression: Proteinuria -No NSAIDs Hyponatremia -Continue IVF with NS Hypokalemia -Replete as ordered Hypophosphatemia -Encourage nutrition -Agree with Ensure Anemia in chronic illness -Monitor H&H SLE -Check Complement & DsDNA Case reviewed with Dr. Sheppard Thank you kindly for the consultation
[2023-05-24] MEDS ORDERED: DRISDOL (VITAMIN D=ERGOCALCIFEROL) 50000 UNIT CAP PO ONE (23:00)
[2023-05-24 23:27] VITALS: O2SAT 98
[2023-05-25] MEDS: HYDROCORTISONE SUC 100 MG INJ IV SCH ×3 (01:09→16:19)
[2023-05-25 03:44] LABS: Absolute Lymphocytes (CBC) 1.8 K/uL (0.7-4.9); Hematocrit 27.6 % (36.0-45.0); Lymphocytes % 32.8 % (15.3-44.8); MCV 90.2 fL (80-100); MPV 7.2 fL (7.6-11.3); RBC Red Blood Cell Count 3.06 M/uL (3.86-4.86)
[2023-05-25] MEDS: MORPHINE 4 MG/ML SYR IV PRN ×2 (03:51→17:48)
[2023-05-25] MEDS: NA CHLORIDE 0.9% 1,000 ML IV SCH ×2 (03:52→13:26)
[2023-05-25 03:57] LABS: Albumin 2.6 g/dL (3.4-5.0); Bilirubin Total 0.3 mg/dL (0.2-1.0); Magnesium 1.6 mg/dL (1.6-2.4); Phosphorus 2.3 mg/dL (2.5-4.9); Potassium 3.2 mEq/L (3.5-5.1); Protein, Total 5.6 g/dL (6.4-8.2); Uric Acid 2.3 mg/dL (2.6-6.0)
[2023-05-25] MEDS ORDERED: POTASSIUM 25 MEQ EFFERV TAB PO ONE (04:08)
[2023-05-25] MEDS ORDERED: MAGNESIUM SULFATE 1 gm IVPB 1 GM/100 ML BAG IV ONE (04:09)
[2023-05-25 04:43] LABS: UR PROTEIN 15.5 mg/dL (<11.9); Urine Protein/Creatinine Ratio 0.13 ratio (<0.15)
[2023-05-25 05:11] LABS: Specific Gravity 1.014 (1.005-1.030); UR MICROALBUMIN < 0.5 mg/dL (< 1.9); Urine Bacteria None Seen /HPF (<20); Urine Bilirubin NEGATIVE (Negative); Urine Blood Trace (Negative); Urine Clarity Turbid (Clear); Urine Color Light-Yellow (Yellow); Urine Glucose NEGATIVE (Negative); Urine Mucus Slight /HPF (None Seen); Urine Protein NEGATIVE (Negative); Urine RBC None Seen /HPF (None Seen); Urine Urobilinogen Normal (Normal); Urine pH 6.5 (5.0-7.0)
[2023-05-25] MEDS: POTASS/SODIUM PHOSPHATE 1 PKT POWD.PACK PO SCH ×2 (06:14→08:03)
[2023-05-25] MEDS: PANTOPRAZOLE 40MG TABLET PO SCH (06:14)
[2023-05-25 07:58] LABS: Hepatitis B surface AG Interp. Nonreactive (Nonreactive); Hepatitis C Virus Ab Nonreactive (Nonreactive)
[2023-05-25 08:00] LABS: Hepatitis B Surface Ab - Quant < 3.10 mIU/mL (<8.0)
[2023-05-25] MEDS: ENSURE ENLIVE 237 ML CAN PO SCH (08:04)
[2023-05-25] MEDS ORDERED: MULTIVITAMINS,THERAPEUT 1 TAB PO SCH (09:00)
[2023-05-25] MEDS ORDERED: DOCUSATE NA 100 MG CAP PO SCH (09:00)
[2023-05-25] MEDS: HYDROCODONE/APAP 5/325 MG TAB PO PRN (13:26)
[2023-05-25 16:17] VITALS: BP 119/70; TEMP 97.5
--- NOTE | 2023-05-25 18:01 | P.DS ---
Admission Date: 05/23/23 Discharge Date: 05/25/23 Disposition: ROUTINE DISCHARGE Discharge Condition: FAIR Reason for Admission: Hypokalemia, proteinuria Brief History of Present Illness: 53, yo F, PMH: Lupus (on q48hr prednisone), HTN, Gastroparesis, recurrent UTIs, ~1 a month (since ~january 2022), depression presented to the ED after leaving AMA from nearby hospital due to not feeling better. She was hospitalized for ~5-6 days and was receiving treatment for pneumonia, UTI, and APRIL. Initially presented to hospital due to chest pain, nausea, and not feeling well. On further discussion, patient states 2 weeks ago, she felt like she developed a UTI, presented to UC/ED in [place], and prescribed antibiotic and iburpofen for UTI / pain. A few days later she didn't feel better so presented to [facility] (05/16) and found to have APRIL (Cr: ~2.7) and UTI. She was given IVF, antibiotics and discharged home. She didn't feel any better so returned on 05/18 (cr: 1.24) and admitted for further treatment/evaluation. Urine culture grew staph haemolyticus that was reportedly iglesias-sensitive - and patient received rocephin and nitrofurantoin. She was reportedly improving, however patient states she was continuing with nausea and vomiting, with a dark tarry black stool daily and having pain across lower back "at waistline" in addition to other scattered/nonspecific areas of her body. In the ED here, she was noted to have hypokalemia of 2.8. She reportedly had a potassium level of 2.8 yesterday, replaced with 80meq KCL, and was "normal" this morning, per [facility] staff. Clean catch UA done in the ED reports +mild proteinuria, 25 leuk est., no bacteria, 1+blood, <5 rbcs, 5-10 hyaline casts, +mucus. She stated she had been on prednisone 10mg every other day for years. She stated she did not tolerate methotrexate or plaquenil. 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 Has been off steroids for 1 week. Patient was hospitalized for further management. Hospital Course: Diagnosis Hypokalemia, Proteinuria recent UTI in last week (staph hemolyticus) nausea/vomiting, lower back pain Hyponatremia, mild Lupus Anemia Gastroparesis Hypertension sciatica hx of afib Hypokalemia, Proteinuria recent UTI in last week (staph hemolyticus) nausea/vomiting, lower back pain Hyponatremia, mild Lupus lower back pain Recently admitted to [facility] on Friday 05/18, urine culture grew staph hemolyticus, received Rocephin and Macrobid to cover for pneumonia and UTI No bacteria noted on UA in the ED now, received 5 days of antibiotics, afebrile, no leukocytosis, will hold off on further antibiotics at this point CT chest/abdomen/pelvis in the ED without acute findings, limited due to nonco ntrast 1+ blood on UA, no RBCs CPK ok Mild proteinuria possibly sequlae of UTI, possible component lupus nephritis Patient hydrated with IV fluid. Nephrology consulted history of chronic 10 mg prednisone every other day for over a year patient's symptoms may be secondary to adrenal insufficiency, however electrolytes not exact hydrocortisone given in ED (100mg) and treated with stress dose hy drocortisone. blood cultures: NTGD urine culture: No growth. afebrile, no leukocytosis. Patient tolerated solid diet with good oral intake. Anemia hgb dropped from 12.2 -> 9.9 overnight no bleed, but states 1 week of steady, once/daily dark tarry stool started ppi for prophylaxis, given steroid use and possible UGI bleed, no epigastric tenderness. Patient is on sucralfate which is resumed on discharge. Gastroparesis Hypertension sciatica hx of afib Stable Continued home meds. Vital Signs/Physical Exam: Temp Pulse Resp BP Pulse Ox 97.5 F 72 16 119/70 100 05/25/23 16:00 05/25/23 16:00 05/25/23 16:00 05/25/23 16:00 05/25/23 16:00 General: Alert, In no apparent distress, Oriented x3 HEENT: Mucous membr. moist/pink Neck: Supple, JVD not distended Respiratory: Clear to auscultation bilaterally, Normal air movement Cardiovascular: No edema, Regular rate/rhythm, Normal S1 S2 Gastrointestinal: Normal bowel sounds, Soft and benign, Non-distended Musculoskeletal: No swelling Integumentary: No rashes Neurological: Normal strength at 5/5 x4 extr Laboratory Data at Discharge: WBC 5.50 thou/uL (4.3-10.9) 05/25/23 02:50 Hgb 9.5 g/dL (12.0-15.0) L 05/25/23 02:50 Hct 27.6 % (36.0-45.0) L 05/25/23 02:50 Plt Count 243 thou/uL (152-406) 05/25/23 02:50 PT 13.9 SECONDS (9.5-12.5) H 05/23/23 10:15 INR 1.26 05/23/23 10:15 APTT 31.4 SECONDS (24.3-36.9) 05/23/23 10:15 Sodium 136 mEq/L (136-145) 05/25/23 02:50 Potassium 3.2 mEq/L (3.5-5.1) L 05/25/23 02:50 BUN 4 mg/dL (7-18) L 05/25/23 02:50 Creatinine 0.63 mg/dL (0.55-1.02) 05/25/23 02:50 Glucose 147 mg/dL (74-106) H 05/25/23 02:50 Uric Acid 2.3 mg/dL (2.6-6.0) L 05/25/23 02:50 Phosphorus 2.3 mg/dL (2.5-4.9) L 05/25/23 02:50 Magnesium 1.6 mg/dL (1.6-2.4) 05/25/23 02:50 Total Bilirubin 0.3 mg/dL (0.2-1.0) 05/25/23 02:50 AST 9 U/L (15-37) L 05/25/23 02:50 ALT 18 U/L (13-56) 05/25/23 02:50 Alkaline Phosphatase 69 U/L (45-117) 05/25/23 02:50 Home Medications: Escitalopram [Lexapro] 10 mg PO DAILY 10/03/13 Metoclopramide [Reglan*] 10 mg PO QID 10/03/13 Rivaroxaban [Xarelto*] 20 mg PO DAILY 10/03/13 Sucralfate [Carafate*] 1 gm PO QID 10/03/13 Potassium Chloride [K-Dur] 10 meq PO DAILY 10/22/13 Sotalol HCl [Sorine] 80 mg PO BID #0 tablet 10/24/13 Hydrocodone 10/APAP 325 [[place] 10/325*] 1 tab PO Q6H PRN #30 tab 10/30/13 predniSONE [Prednisone*] 10 mg PO BID #40 tab 10/30/13 Docusate [Colace Cap*] 100 mg PO BID #60 cap 05/25/23 Ensure Enlive 237 ml PO BID #30 can 05/25/23 Pantoprazole [Protonix Tab*] 40 mg PO DAILYAC #30 tab 05/25/23 Vitamin D [Drisdol*] 50,000 unit PO Q7D #4 cap 05/25/23 New Medications: Docusate [Colace Cap*] 100 mg PO BID #60 cap Vitamin D [Drisdol*] 50,000 unit PO Q7D #4 cap Ensure Enlive 237 ml PO BID #30 can Pantoprazole [Protonix Tab*] 40 mg PO DAILYAC #30 tab Diet: AHA Activity: Ad giuseppe Followup: NONE,NONE [Primary Care Provider] - Time spent managing pt's care (in minutes): 36
[2023-05-31] MEDS ORDERED: DRISDOL (VITAMIN D=ERGOCALCIFEROL) 50000 UNIT CAP PO SCH (09:00)
== END 2023-05-25 18:40 | disposition home or self-care (01) ==
LOC: ER 09:13 → ERHOLD 14:11 → 2ND 20:14
PROVIDERS: ADMIT Hospitalist; ATTEND Internal Medicine
DX: E87.6 Hypokalemia (principal); R80.9 Proteinuria, unspecified; E87.1 Hypo-osmolality and hyponatremia; E86.0 Dehydration; R11.2 Nausea with vomiting, unspecified; M54.50 Low back pain, unspecified; K31.84 Gastroparesis; I48.91 Unspecified atrial fibrillation; I10 Essential (primary) hypertension; M54.30 Sciatica, unspecified side; M32.9 Systemic lupus erythematosus, unspecified; D63.8 Anemia in other chronic diseases classified elsewhere; N23 Unspecified renal colic; E83.39 Other disorders of phosphorus metabolism; Z80.9 Family history of malignant neoplasm, unspecified; Z87.440 Personal history of urinary (tract) infections; Z88.3 Allergy status to other anti-infective agents
CPT/HCPCS: 36415; 70450; 71045; 71250; 72125; 80053; 81001; 82043; 82435; 82570; 83605; 83615; 83735; 83930; 83935; 84100; 84132; 84156; 84165; 84300; 84443; 84550; 85025; 85027; 85610; 85730; 86140; 86160; 86225; 86706; 86803; 87040; 87086; 87088; 87340; 87389; 93005; 94760; 96372; 99285; G0378; J1170; J1720; J2405; J3010; J3475; J3480; J7030